=== PATIENT | female | born 1995 | race Caucasian/White ===

== ENCOUNTER 2019-07-10 05:30 | Emergency (ER) | payer BC ==
[~2019-07-10] VITALS: Ht 170.2 cm; Wt 65.8 kg
[2019-07-10 06:03] VITALS: BP 132/86
--- NOTE | 2019-07-10 06:26 | NUR ---
URINE AND THROAT SWAB SENT TO STAT [facility]
[2019-07-10 06:40] LABS: APPEARANCE,URINE CLEAR (CLEAR); BILIRUBIN,URINE NEGATIVE (NEGATIVE); BLOOD, URINE NEGATIVE Ery/uL (NEGATIVE); COLOR,URINE YELLOW (YELLOW); KETONES,URINE NEGATIVE (NEGATIVE); LEUKOCYTE ESTERASE ,URINE NEGATIVE (NEGATIVE); NITRITE, URINE NEGATIVE (NEGATIVE); PROTEIN,URINE NEGATIVE (NEGATIVE); UGLUCOSE NEGATIVE (NEGATIVE); UROBILINOGEN,URINE 0.2 EU/dL (0.2)
== END 2019-07-10 07:36 | disposition home or self-care (01) ==
LOC: ER 05:38
DX: J02.9 Acute pharyngitis, unspecified (principal); R30.0 Dysuria; G40.909 Epilepsy, unspecified, not intractable, without status epilepticus; Z88.2 Allergy status to sulfonamides; Z88.8 Allergy status to other drugs, medicaments and biological substances
CPT/HCPCS: 81000-TC; 86403-TC; 87070-TC